=== PATIENT | female | born 1970 | race Asian ===

== ENCOUNTER 2016-12-14 16:24 | Emergency (ER) | payer OTHER ==
[~2016-12-14] VITALS: Ht 167.6 cm; Wt 88.0 kg
[~2016-12-14 16:24] MED LIST: FLA500 PO; LAC PO; LEVAQUIN750 MG PO; LEVOTHROID0.075 MG PO
[2016-12-14 16:37] VITALS: BP 155/100
== END 2016-12-14 17:52 | disposition home or self-care (01) ==
LOC: ED 16:24
DX: S63.502A Unspecified sprain of left wrist, initial encounter (principal); X50.9XXA Other and unspecified overexertion or strenuous movements or postures, initial encounter; Y93.89 Activity, other specified; Y92.89 Other specified places as the place of occurrence of the external cause; Y99.8 Other external cause status
CPT/HCPCS: A4570

== ENCOUNTER → 2017-02-21 | Outpatient (CLI) | payer OTHER ==
[2017-02-21 13:04] LABS: ALBUMIN 3.6 g/dL (3.4-5.0); ALKALINE PHOSPHATASE 42 U/L (46-116); ALT/SGPT 30 U/L (14-59); AST/SGOT 18 U/L (15-37); BILIRUBIN DIRECT 0.11 mg/dL (0.0-0.2); CALCIUM 8.6 mg/dL (8.5-10.1); CARBON DIOXIDE 27.1 mmol/L (21-32); CHLORIDE SERUM 106 mmol/L (98-107); CREATININE SERUM 0.8 mg/dL (0.6-1.0); FREE T4 1.18 ng/dL (0.76-1.46); GFR1 > 60 mL/min; GLUCOSE SERUM 93 mg/dL (74-106); POTASSIUM SERUM 4.2 mmol/L (3.5-5.1); SODIUM SERUM 141 mmol/L (136-145); T4(THYROXINE) 9.9 ug/dL (4.7-13.3); TOTAL PROTEIN, SERUM 7.5 g/dL (6.4-8.2); TRIGLYCERIDES 62 mg/dL (<150)
[2017-02-21 13:07] LABS: BASOPHIL % 1.8 % (0-2); PLATELET COUNT 239 x10^3mcL (130-400); RED CELL DISTRIBUTION WIDTH 12.4 % (11.5-14.5)
[2017-02-21 13:09] LABS: CHOLESTEROL 206 mg/dL (<200); CHOLESTEROL/HDL RATIO 2.9; HDL CHOLESTEROL 72 mg/dL (40-60)
== END | disposition home or self-care (01) ==
LOC: LB 12:05
PROVIDERS: Internal Medicine
DX: E03.9 Hypothyroidism, unspecified (principal)
CPT/HCPCS: 84439

== ENCOUNTER → 2017-05-10 | Outpatient (CLI) | payer OTHER | END | disposition home or self-care (01) | LOC: MA 06:59 → US 11:00 | PROC: BU46ZZZ Ultrasonography of Uterus (ICD-10-PCS; principal; 2017-05-10) | DX: Z12.31 Encounter for screening mammogram for malignant neoplasm of breast (principal); Z30.431 Encounter for routine checking of intrauterine contraceptive device | CPT/HCPCS: G0202 ==

== ENCOUNTER → 2017-07-13 | Outpatient (CLI) | payer OTHER ==
[2017-07-13 10:28] LABS: URIC ACID 4.5 mg/dL (2.6-6.0)
[2017-07-13 10:40] LABS: T4(THYROXINE) 13.5 ug/dL (4.7-13.3)
== END | disposition home or self-care (01) ==
LOC: LB 06:44
PROVIDERS: Internal Medicine
DX: E03.9 Hypothyroidism, unspecified (principal)

== ENCOUNTER 2017-08-04 19:52 | Inpatient (IN) | payer OTHER ==
[~2017-08-04] VITALS: Ht 165.1 cm; Wt 86.0 kg
--- NOTE | 2017-08-04 20:55 | NUR ---
MSE COMPLETED BY DR CATES
--- NOTE | 2017-08-04 21:00 | NUR ---
PT PRESENTS TO ED TODAY WITH C/C OF ABDOMINAL PAIN. PT REPORTS HX OF RUPTURED DIVERTICULUM X1 YEAR AGO. SYMPTOMS OF FEVER AND NAUSEA BEGAN X1 MONTH AGO, BUT RESOLVED AFTER SHE PLACED HERSELF NPO. TODAY, PT PRESENTS WITH SAME SYMPTOMS OF FEELING "FEVERISH", INTENSIFIED PAIN, AND NAUSEA. PT IS AWAKE AND ALERT, RESP E/U.
--- NOTE | 2017-08-04 21:13 | NUR ---
LAB AT BEDSIDE FOR BLOOD DRAW
[2017-08-04 21:20] LABS: BASOPHIL % 0.4 % (0-2); PLATELET COUNT 226 x10^3mcL (130-400); RED CELL DISTRIBUTION WIDTH 12.9 % (11.5-14.5)
--- NOTE | 2017-08-04 21:28 | NUR ---
PT MEDICATED PER MD ORDER, PT VERBALIZED UNDERSTANDING OF MEDICATION PRIOR TO ADMINISTRATION.
--- NOTE | 2017-08-04 21:40 | NUR ---
PT TO CT VIA WC, NO SIGNS OF DISTRESS NOTED
[2017-08-04 21:44] LABS: CARBON DIOXIDE 25.8 mmol/L (21-32); CHLORIDE SERUM 103 mmol/L (98-107); CREATININE SERUM 0.9 mg/dL (0.6-1.0); GFR1 > 60 mL/min; GLUCOSE SERUM 101 mg/dL (74-106); POTASSIUM SERUM 3.9 mmol/L (3.5-5.1); SODIUM SERUM 138 mmol/L (136-145)
[2017-08-04 21:49] LABS: ALBUMIN 3.6 g/dL (3.4-5.0); ALKALINE PHOSPHATASE 55 U/L (46-116); ALT/SGPT 25 U/L (14-59); AST/SGOT 20 U/L (15-37); BILIRUBIN TOTAL 1.1 mg/dL (0.20-1.00); LIPASE 184 IU/L (73-393); TOTAL PROTEIN, SERUM 8.2 g/dL (6.4-8.2)
--- NOTE | 2017-08-04 22:38 | NUR ---
IV ZOSYN INFUSION STARTED PER MD ORDER, PT VERBALIZES UNDERSTANDING OF MEDICATION PRIOR TO ADMINISTRATION.
[2017-08-04] MEDS ORDERED: SYNTHROID0.1 MG PO (23:14)
--- NOTE | 2017-08-04 23:26 | NUR ---
REPORT CALLED TO RAD[facility], RECEIVING NURSE ON TELE.
[2017-08-04 23:53] LABS: FREE T4 1.46 ng/dL (0.76-1.46); T4(THYROXINE) 11.2 ug/dL (4.7-13.3)
[2017-08-05 00:05] LABS: MAGNESIUM 1.8 mg/dL (1.8-2.4)
[2017-08-05 00:06] LABS: CHOLESTEROL/HDL RATIO 2.4
[2017-08-05 00:21] LABS: T3 TOTAL 0.79 ng/mL
[2017-08-05 00:52] VITALS: BP 131/70
--- NOTE | 2017-08-05 00:58 | NUR ---
RECEIVED PATIENT FROM ED VIA GUERNEY, PATIENT ALERT AND ORIENTED DAUGHTER AT BEDSIDE, TELE # 10 SR, IV ACCESS TO RAC WNL, C/O PAIN TO ABD WILL MEDICATE ORDERED, ORIENTED PATIENT TO ROOM AND SURROUNDINGS, BED IN LOW POSITION, BED RAILS UP X 2, CALL LIGHT WITHIN REACH, WILL ENDORSE CARE TO PRIMARY NURSE RADHA MENDIOLA
--- NOTE | 2017-08-05 01:01 | NUR ---
RECEIVED PT FROM MARIA T MENDIOLA. PT A/OX4. DENIES SOB ON RA. C/O PAIN TO ABD 01/23, DOES NOT WISH TO BE MEDICATED FOR PAIN. IV TO LAC PATENT AND FLUSHING WELL. ORIENTED TO ROOM AND SURROUNDINGS. CALL LIGHT WITHIN REACH, BED IN LOW POSITION. WILL CONTINUE TO MONITOR.
--- NOTE | 2017-08-05 02:13 | NUR ---
PT RESTING AT THIS TIME IN NO ACUTE DISTRESS. RR EVEN AND UNLABORED. IV PATENT. CALL LIGHT WITHIN REACH, BED IN LOW POSITION. WILL CONTINUE TO MONITOR.
--- NOTE | 2017-08-05 07:40 | NUR ---
PT RECEIVED AAOX4, CONVERSING WELL IN FULL SENTENCES. RESP EVEN AND UNLABORED ON RA. DENIES ANY SOB OR COUGH. TELE #10, SR, HR 70. DENIES ANY CP OR PRESSURE. IV ON RAC INTACT, 20G, INFUSING NS AT 100 ML/HR. ABD ROUND/SOFT WITH ACTIVE BS IN ALL QUADS. LAST BM YESTERDAY AM PER PATIENT. DENIES ANY DIARRHEA/CONSTIPATION. VOIDING WELL WITH BRP. AMBULATES INDEPENDENTLY. CALL LIGHT WITHIN REACH. WILL CONTINUE TO MONITOR.
[2017-08-05 07:48] LABS: BASOPHIL % 0.2 % (0-2); PLATELET COUNT 200 x10^3mcL (130-400); RED CELL DISTRIBUTION WIDTH 12.7 % (11.5-14.5)
[2017-08-05 08:01] LABS: CALCIUM 8.2 mg/dL (8.5-10.1); CARBON DIOXIDE 25.7 mmol/L (21-32); CHLORIDE SERUM 104 mmol/L (98-107); CREATININE SERUM 0.9 mg/dL (0.6-1.0); GFR1 > 60 mL/min; GLUCOSE SERUM 107 mg/dL (74-106); POTASSIUM SERUM 3.9 mmol/L (3.5-5.1); SODIUM SERUM 139 mmol/L (136-145)
--- NOTE | 2017-08-05 09:00 | NUR ---
PT REPORTS MILD NAUSEA, BUT SLIGHTLY RELIEVED FROM EARLIER. WILL CONTINUE TO MONITOR CLOSELY. DENIES ANY PAIN AT THIS TIME. PT'S SON AND DAUGHTER AT BEDSIDE. CALL LIGHT WITHIN REACH.
--- NOTE | 2017-08-05 09:05 | NUR ---
DR BOYD, RESIDENT TEAM, CHARGE NURSE, AND MYSELF AT BEDSIDE TO DISCUSS PLAN OF CARE WITH PATIENT.
[2017-08-05 09:39] VITALS: BP 139/79
--- NOTE | 2017-08-05 11:10 | NUR ---
PT DENIES ANY NAUSEA AT THIS TIME. REPORTS LEFT SIDED ABD CRAMPING/PAIN ON MOVEMENT BUT "OKAY" AT REST. WILL CONTINUE TO MONITOR. CALL LIGHT WITHIN REACH. DAUGHTER AT BEDSIDE.
[2017-08-05 13:10] VITALS: BP 137/78
[2017-08-05 14:04] LABS: UA SPECIFIC GRAVITY 1.015 (1.005-1.035); microscopic required? YES; urine erythrocyte 1+ (NEGATIVE)
--- NOTE | 2017-08-05 14:24 | NUR ---
DR MADRID AT BEDSIDE TO EVALUATE PATIENT.
[2017-08-05 17:47] VITALS: BP 133/77
--- NOTE | 2017-08-05 18:15 | NUR ---
PT AMBULATING IN ROOM AND SITTING UP IN CHAIR WITHOUT COMPLAINTS. CALL LIGHT WITHIN REACH.
--- NOTE | 2017-08-05 19:39 | NUR ---
SHIFT REASSESSMENT.PATIENT SITTING UP/CHAIR,NO DISTRESS.IV SITE RAC INTACT AND PATENT.MOVING ALL EXT.TELE 10 SR.SKIN INTACT.SCD ORDERED.CALL LIGHT IN REACH.
[2017-08-05 20:23] VITALS: BP 147/83
--- NOTE | 2017-08-05 20:43 | NUR ---
PATIENT NPO X MED,GIVEN HER COLACE,REQUESTED FOR NORCO AND GIVEN,RESTING,WATCHING TV.
--- NOTE | 2017-08-05 22:55 | NUR ---
CORRECTION:PATIENT IS NOT NPO,NOW ON CLEAR LIQ.
--- NOTE | 2017-08-06 04:57 | NUR ---
QUIET ENVIRONMENT MAINTAINED.NS NEW BAG AT THIS TIME.
--- NOTE | 2017-08-06 05:46 | NUR ---
WILL ENDORSE TO NEXT SHIFT.
[2017-08-06 06:00] VITALS: BP 139/75
--- NOTE | 2017-08-06 06:08 | NUR ---
NEW ORDER FLAGYL,ALSO NOW ON FULL LIQUID.
[2017-08-06 06:21] LABS: BASOPHIL % 0.2 % (0-2); PLATELET COUNT 202 x10^3mcL (130-400); RED CELL DISTRIBUTION WIDTH 12.5 % (11.5-14.5)
[2017-08-06 06:25] LABS: CALCIUM 8.2 mg/dL (8.5-10.1); CARBON DIOXIDE 24.7 mmol/L (21-32); CHLORIDE SERUM 107 mmol/L (98-107); CREATININE SERUM 0.8 mg/dL (0.6-1.0); GFR1 > 60 mL/min; GLUCOSE SERUM 70 mg/dL (74-106); MAGNESIUM 1.8 mg/dL (1.8-2.4); PHOSPHOROUS 2.2 mg/dL (2.5-4.9); POTASSIUM SERUM 3.5 mmol/L (3.5-5.1); SODIUM SERUM 139 mmol/L (136-145)
--- NOTE | 2017-08-06 07:30 | NUR ---
RECEIVED PT IN BD A/A/OX4 DENIES ANDRE, RESP EVEN AND UNLABORED WITH CLEAR BS BILAT. DENIES ANY SOB/CP/PRESSURE. NO EDEMA NOTED. ABD SOFT, NONTENDER WITH ACTIVE BS X4. REPORTS OCC NAUSEA. NO BM X2DAYS. VOIDING FREELY. DIET ADVANCED TO FULL LIQUID. AMBULATORY. CALL LIGHT IN REACH NEEDS ATTENDED TO.
[2017-08-06 09:31] VITALS: BP 148/82
[2017-08-06 14:15] VITALS: BP 136/78
[2017-08-06] MEDS ORDERED: FLA500 PO (15:38)
[2017-08-06] MEDS ORDERED: LAC PO (15:39)
[2017-08-06] MEDS ORDERED: LEVOFLOXACIN500 M1 PO (15:42)
[2017-08-06 16:14] VITALS: BP 136/78
[2017-08-06] MEDS ORDERED: ZOF4 PO (16:19)
--- NOTE | 2017-08-06 17:10 | NUR ---
PT RPOVIDED WITH D/C HOME INSTRUCTIONS. GIVEN MEDICATION EDUCATION. MADE AWARE OF F/U APPT WITH PCP AND DR. TERRAZAS, AND DR. MCCONNELL. INSTRUCTED TO TAKE ATB TX PRECRIBED AND COMPLETE TX. PT VERBALIZED UNDERSTANDING OF INSTRUCTIONS. IV D/C'D CATHETER INTACT. PT AMBULATED TO LOBBY WITH ALL PERSONAL BELONGINGS IN HAND FREE OF ANY APPARENT DISTRESS.
== END 2017-08-06 17:23 | disposition home or self-care (01) | DRG 872 ==
LOC: ED 19:52 → MU 23:08 → DU 23:08 → MU 08-06 10:57
PROVIDERS: Emergency Medicine; ADMIT Family Medicine Sports Medicine
DX: A41.9 Sepsis, unspecified organism (principal); K57.20 Diverticulitis of large intestine with perforation and abscess without bleeding; K56.7 Ileus, unspecified; Z53.29 Procedure and treatment not carried out because of patient's decision for other reasons; K52.9 Noninfective gastroenteritis and colitis, unspecified; E83.39 Other disorders of phosphorus metabolism; E03.9 Hypothyroidism, unspecified; E66.9 Obesity, unspecified; Z68.31 Body mass index [BMI] 31.0-31.9, adult; Z90.49 Acquired absence of other specified parts of digestive tract; Z83.3 Family history of diabetes mellitus; Z82.49 Family history of ischemic heart disease and other diseases of the circulatory system
CPT/HCPCS: 83880; 84439; J2270; J2405; J2543; J3490; J7030; Q9967

== ENCOUNTER → 2017-10-17 | Outpatient (CLI) | payer OTHER ==
[~2017-10-17] MED LIST changes: +LEVOFLOXACIN500 M1 PO; +SYNTHROID0.1 MG PO; +ZOF4 PO
[2017-10-17 10:14] LABS: BASOPHIL % 0.5 % (0-2); PLATELET COUNT 266 x10^3mcL (130-400); RED CELL DISTRIBUTION WIDTH 12.8 % (11.5-14.5)
[2017-10-17 11:10] LABS: FREE T4 1.45 ng/dL (0.76-1.46)
== END | disposition home or self-care (01) ==
LOC: RD 09:31
PROVIDERS: Internal Medicine
DX: E03.5 Myxedema coma (principal)
CPT/HCPCS: 84439